=== PATIENT | male | born 1980 | race Two or more races ===

== ENCOUNTER 2018-08-21 17:36 | Emergency (ER) | payer MEDICAID ==
[~2018-08-21] VITALS: Ht 185.4 cm; Wt 104.4 kg
[2018-08-21] MEDS ORDERED: LIDOCAINE 1%/EPI 1:100,000 10 ML VIAL IJ ONE (20:15)
[2018-08-21] MEDS ORDERED: MORPHINE SULFATE 10 MG/ML CPJ IM ONE (20:15)
[2018-08-21] MEDS ORDERED: KETOROLAC 30MG/ML VIAL IM ONE (20:15)
[2018-08-21] MEDS ORDERED: LIDOCAINE HCL/EPINEPHRINE 1%-EPI 1:100,000 20 ML VIAL IJ NR (20:40)
[2018-08-21 22:22] VITALS: BP 116/64
== END 2018-08-21 22:25 | disposition home or self-care (01) ==
LOC: ER 17:36
DX: K64.5 Perianal venous thrombosis (principal); Z87.891 Personal history of nicotine dependence
CPT/HCPCS: 46083; 96372; 99284; J1885; J2270; J3490